=== PATIENT | female | born 1995 | race Hispanic/Latino ===

== ENCOUNTER 2018-12-29 11:21 | Inpatient (IN) | payer MEDICAID ==
[2018-12-29] MEDS ORDERED: BUTORPHANOL 2 MG/1 ML INJ IV PRN (13:37)
[2018-12-29] MEDS ORDERED: LIDOCAINE (2%) 20 MG/1 ML VIAL 20 ML MDV INFILTRATI ONE (13:37)
[2018-12-29] MEDS ORDERED: MINERAL OIL 30 ML ORAL LIQD PO PRN (13:37)
[2018-12-29] MEDS ORDERED: ePHEDrine SULFATE 50 MG/1 ML INJ IV PRN (13:37)
[2018-12-29] MEDS ORDERED: TERBUTALINE 1 MG/1 ML INJ IVP PRN (13:37)
[2018-12-29] MEDS ORDERED: fentaNYL 100 MCG/2 ML INJ IV PRN (13:37)
[2018-12-29] MEDS ORDERED: TERBUTALINE 1 MG/1 ML INJ SUB-Q PRN (13:37)
[2018-12-29 13:54] LABS: Hematocrit 34.8 % (30.3-42.9); Hemoglobin 11.8 gm/dl (10.1-14.3); Mean Corpuscular HGB Conc 34 % (30-34); Mean Corpuscular Volume 87 fl (79-97); Platelet Count 304 K/mm3 (140-440); Red Cell Distribution Width 12.7 % (13.2-15.2)
[2018-12-29] MEDS ORDERED: OXYTOCIN 20 UNIT/1000ML DRIP 20 UNITS/1,000 ML BAG IV SCH (14:00)
[2018-12-29] MEDS ORDERED: OXYTOCIN DRIP 30 UNITS/500 ML BAG IV SCH (14:00)
[2018-12-29] MEDS ORDERED: miSOPROStol 100 MCG TAB VG ONE (15:00)
[2018-12-29] MEDS: miSOPROStol 25 MCG TAB VG SCH ×2 (16:02→22:47)
[2018-12-29] MEDS: LACTATED RINGERS 1,000 ML IV SCH (18:29)
[2018-12-29] MEDS: OXYTOCIN DRIP 30 UNITS/500 ML BAG IV SCH (19:23)
[2018-12-30] MEDS: LACTATED RINGERS 1,000 ML IV SCH ×2 (02:17→14:39)
--- NOTE | 2018-12-30 08:52 | History and Physical Report ---
History of Present Illness Date of examination: 12/30/18 Chief complaint: My fluid is low History of present illness: Pt is a 23 year old who presents at 39.5 weeks for induction for oligo hydramnios found today on ultrasound at [facility]. Pt has had an uncomplicated course. She is GBS negative. Medications and Allergies Allergies Allergy/AdvReac Type Severity Reaction Status Date / Time No Known Allergies Allergy Unverified 12/29/18 11:42 Home Medications Medication Instructions Recorded Confirmed Last Taken Type [facility] Gummies 1 tab PO DAILY MDD 1 12/29/18 12/29/18 12/29/18 History 0800 Active Meds: Active Medications Butorphanol Tartrate (Stadol) 2 mg IV Q2H PRN PRN Reason: Pain , Severe (7-10) Ephedrine Sulfate (Ephedrine Sulfate) 10 mg IV Q2M PRN PRN Reason: Hypotension Fentanyl (Sublimaze) 100 mcg IV Q2H PRN PRN Reason: Labor Pain Oxytocin/Sodium Chloride (Pitocin/Ns 20 Unit/1000ml Drip) 20 units in 1,000 mls @ 125 mls/hr IV DIRECT ADELINE Oxytocin/Sodium Chloride (Pitocin/Ns 30 Unit/500ml) 30 units in 500 mls @ 1 mls/hr IV TITR ADELINE; Protocol Last Titration: 12/30/18 07:45 Dose: 10 milliunits/min, 10 mls/hr Documented by: Oxytocin/Sodium Chloride (Pitocin/Ns 30 Unit/500ml) 30 units in 500 mls @ 4 mls/hr IV TITR ADELINE; Protocol Lactated Ringer's (Lactated Ringers) 1,000 mls @ 125 mls/hr IV DIRECT ADELINE Last Admin: 12/30/18 02:17 Dose: 125 mls/hr Documented by: Mineral Oil (Mineral Oil) 30 ml PO QHS PRN PRN Reason: Constipation Misoprostol (Cytotec) 25 mcg VG Q4H ADELINE Last Admin: 12/29/18 22:47 Dose: 25 mcg Documented by: Terbutaline Sulfate (Brethine) 0.25 mg SUB-Q ONCE PRN PRN Reason: Hyperstimulation/Hypertonicity Terbutaline Sulfate (Brethine) 0.25 mg IVP ONCE PRN PRN Reason: Hyperstimulation/Hypertonicity Review of Systems All systems: negative Genitourinary: contractions - Vital Signs Vital signs: Vital Signs Pulse Pulse Ox 114 H 97 12/29/18 11:47 12/29/18 11:47 Temp Pulse Resp BP Pulse Ox 98.0 F 85 16 117/80 80 L 12/30/18 07:36 12/30/18 07:40 12/30/18 07:36 12/30/18 07:40 12/29/18 12:06 - Physical Exam Breasts: Cardiovascular: Regular rate, Normal S1, Normal S2 Lungs: Positive: Clear to auscultation, Normal air movement Abdomen: Positive: normal appearance, soft, normal bowel sounds. Negative: distention, tenderness Genitourinary (Female): Positive: normal external genitalia, normal perenium Vulva: both: normal Vagina: Positive: normal moisture. Negative: discharge Cervix: Negative: lesion, discharge Uterus: Positive: normal size, normal contour Adnexa: both: normal Anus/Rectum: Positive: normal perianal skin, heme negative. Negative: rectal mass, hemorrhoids Extremities: Deep Tendon Reflex Grade: Normal +2 - Obstetrical FHR: auscultation normal Cervical Dilatation: 0.5 Cervical Effacement Percentage: 50 station: -3 Uterine Contraction Pattern: Absent Uterine Tone Measurement Phase: Resting Results Result Diagrams: 12/29/18 12:08 Abnormal lab results 12/29/18 Range/Units 12:08 WBC 12.0 H (4.5-11.0) K/mm3 RDW 12.7 L (13.2-15.2) % All other labs normal. Assessment and Plan IUP at 39.5 here for induction of labor secondary to oligohydramnios. Will admit for cytotec cervical ripening and then pitocin. Pt may have epidural when ready. Anticipate .
[2018-12-30] MEDS ORDERED: ePHEDrine SULFATE 50 MG/1 ML INJ IV PRN (10:50)
[2018-12-30] MEDS ORDERED: NALOXONE 2 MG/2 ML INJ IV PRN (10:50)
[2018-12-30] MEDS ORDERED: fentaNYL-BUPIV 2 MCG/ML-0.125% 200 MCG/100 ML BAG EPIDURAL SCH (11:00)
[2018-12-30] MEDS: OXYTOCIN DRIP 30 UNITS/500 ML BAG IV SCH (12:10)
--- NOTE | 2018-12-30 14:22 | Anesthesia Consultation ---
Anesthesia Consult and Med Hx Date of service: 12/30/18 - Airway Anesthetic Teeth Evaluation: Good ROM Head & Neck: Adequate Mental/Hyoid Distance: Adequate Mallampati Class: Class II Intubation Access Assessment: Probably Good - Pulmonary Exam CTA: Yes - Cardiac Exam Cardiac Exam: RRR - Pre-Operative Health Status ASA Pre-Surgery Classification: ASA2 Proposed Anesthetic Plan: Epidural, Spinal - Pulmonary Hx Smoking: No Hx Respiratory Symptoms: No - Cardiovascular System Hx Hypertension: No - Central Nervous System Hx Neuromuscular Disorder: No CVA: No Hx Back Pain: No - Endocrine Hx Renal Disease: No Hx Liver Disease: No Hx Insulin Dependent Diabetes: No Hx Non-Insulin Dependent Diabetes: No Hx Thyroid Disease: No - Hematic Hx Anemia: Yes - Other Systems Hx Obesity: Yes
[2018-12-30] MEDS ORDERED: LIDOCAINE MPF (2%) 20 MG/1 ML VIAL 5 ML ONE (14:33)
[2018-12-30] MEDS ORDERED: OXYTOCIN 10 UNIT/1 ML INJ ONE (19:02)
--- NOTE | 2018-12-30 19:22 | Procedure Note ---
OB Delivery Note - Delivery Date of Delivery: 12/30/18 Surgeon: RUPINDER ANDREW Estimated blood loss: 200cc - Vaginal Delivery presentation: vertex Delivery position: OA Intrapartum events: none Delivery induction: misoprostol Delivery augmentation: rupture of membranes, pitocin Delivery monitor: external FHT, external uterine Route of delivery: Delivery placenta: spontaneous Delivery cord: 3 umbilical vessels Episiotomy: none Delivery laceration: 2nd degree, vaginal side wall Delivery repair: vicryl Anesthesia: epidural Delivery comments: Viable male delivered over intact perineum with no nuchal cord, Weight 8 pounds 9 ounces. Apgars 9,9. Placenta delivered spontaneously and intact with 3vc. 2nd degree laceration repaired with 2.0 vicryl. Excellent hemostasis. Pt tolerated procedure well. - A at 1 minute: 8 at 5 minutes: 9 Infant Gender: Male (Weight 8 pounds 9 ounces.)
[2018-12-30] MEDS ORDERED: MAGNESIUM HYDROXIDE (MOM) ORAL LIQD UDC PO PRN (21:13)
[2018-12-30] MEDS ORDERED: WITCH HAZEL/ GLYCERIN PAD TP PRN (21:13)
[2018-12-30] MEDS ORDERED: LANOLIN/ZINC/DIMETHICONE (LANSINOH) 7 GM TP PRN (21:13)
[2018-12-30] MEDS ORDERED: PROMETHAZINE 25 MG RECT SUPP PR PRN (21:13)
[2018-12-30] MEDS ORDERED: ACETAMINOPHEN 325 MG TAB PO PRN (21:13)
[2018-12-30] MEDS ORDERED: PROMETHAZINE 25 MG TAB PO PRN (21:13)
[2018-12-30] MEDS ORDERED: diphenhydrAMINE 25 MG CAP PO PRN (21:13)
[2018-12-30] MEDS ORDERED: HYDROcodone/ACETAMINOPHEN 5-325 MG TAB PO PRN (21:13)
[2018-12-30] MEDS ORDERED: ONDANSETRON 4 MG/2 ML INJ IV PRN (21:13)
[2018-12-31 06:09] LABS: Amphetamine Screen,Urine PRESUMPTIVE NEGATIVE; Benzodiazepines Screen,Urine PRESUMPTIVE NEGATIVE; Cannabinoid Screen,Urine PRESUMPTIVE NEGATIVE; Cocaine Screen,Urine PRESUMPTIVE NEGATIVE; Methadone Screen,Urine PRESUMPTIVE NEGATIVE; Opiate Screen,Urine PRESUMPTIVE NEGATIVE
[2018-12-31 08:11] LABS: Hematocrit 31.7 % (30.3-42.9); Hemoglobin 10.9 gm/dl (10.1-14.3)
[2018-12-31] MEDS: PRENATAL VIT27-FE FUMARATE-FOLIC ACID VIT TAB PO SCH (10:23)
[2018-12-31] MEDS: DOCUSATE SODIUM 100 MG CAP PO SCH ×3 (10:23→23:18)
--- NOTE | 2018-12-31 12:13 | Progress Note ---
Assessment and Plan Pt is PPD1 s/p Vital signs stable Mild anemia- Ferrous sulfate qDay Anticipate discharge to home tomorrow Subjective - Subjective Date of service: 12/31/18 Principal diagnosis: s/p Interval history: PPD1 s/p of viable infant Patient reports: appetite normal, voiding normally, pain well controlled, ambulating normally : doing well, nursing well, bottle feeding (both) Objective - Vital Signs Latest vital signs: Vital Signs Temp Pulse Resp BP BP Pulse Ox 12/31/18 09:21 97.8 F 95 H 20 106/78 100 12/31/18 05:48 98.1 F 107 H 20 105/67 95 12/30/18 21:22 99.4 F 93 H 20 136/73 96 12/30/18 20:42 101 H 94 12/30/18 20:40 93 H 128/71 12/30/18 20:39 109 H 94 12/30/18 20:37 107 H 94 12/30/18 20:34 92 H 94 12/30/18 20:32 102 H 95 12/30/18 20:27 88 94 12/30/18 20:25 98 H 114/76 12/30/18 20:22 105 H 94 12/30/18 20:17 106 H 96 12/30/18 20:16 100 H 94 12/30/18 20:12 100 H 94 12/30/18 20:10 105 H 116/84 12/30/18 20:07 100 H 94 12/30/18 20:02 105 H 95 12/30/18 19:57 103 H 95 12/30/18 19:56 103 H 94 12/30/18 19:55 98 H 116/64 12/30/18 19:52 104 H 95 12/30/18 19:50 102 H 94 12/30/18 19:47 106 H 95 12/30/18 19:42 111 H 95 12/30/18 19:40 102 H 126/78 12/30/18 19:37 109 H 95 12/30/18 19:32 99 H 97 12/30/18 19:27 106 H 96 12/30/18 19:15 99.2 F 98 H 18 126/78 95 12/30/18 18:25 109 H 125/65 12/30/18 18:10 150 H 146/78 12/30/18 17:56 117 H 145/96 12/30/18 17:50 100.8 F H 12/30/18 17:40 102 H 112/58 12/30/18 17:25 93 H 124/58 12/30/18 17:12 87 91 12/30/18 17:10 85 132/76 90 12/30/18 17:08 99 H 96 12/30/18 17:03 83 91 12/30/18 16:58 81 96 12/30/18 16:55 69 127/85 94 12/30/18 16:53 88 96 12/30/18 16:48 96 H 97 12/30/18 16:43 89 93 12/30/18 16:40 86 139/85 12/30/18 16:38 85 79 L 12/30/18 16:33 78 95 12/30/18 16:32 82 94 12/30/18 16:28 80 97 12/30/18 16:26 89 145/86 93 12/30/18 16:23 95 H 94 12/30/18 16:21 91 H 94 12/30/18 16:18 84 97 12/30/18 16:14 84 93 12/30/18 16:13 84 97 12/30/18 16:11 86 115/68 12/30/18 16:09 82 93 12/30/18 16:08 88 97 12/30/18 16:03 93 H 98 12/30/18 15:58 80 96 12/30/18 15:55 90 124/74 12/30/18 15:53 99 H 98 12/30/18 15:48 92 H 98 12/30/18 15:43 70 98 12/30/18 15:40 77 136/70 12/30/18 15:38 79 96 12/30/18 15:33 86 93 12/30/18 15:31 85 93 12/30/18 15:27 78 97 12/30/18 15:26 80 113/56 12/30/18 15:23 80 94 12/30/18 15:18 84 97 12/30/18 15:14 89 92 12/30/18 15:13 78 98 12/30/18 15:10 96 H 125/75 12/30/18 15:08 96 H 97 12/30/18 15:03 98 H 97 12/30/18 14:58 100 H 98 12/30/18 14:55 105 H 126/72 12/30/18 14:53 105 H 99 12/30/18 14:48 101 H 99 12/30/18 14:43 101 H 98 12/30/18 14:40 81 125/76 12/30/18 14:39 86 93 12/30/18 14:38 78 94 12/30/18 14:33 73 91 12/30/18 14:30 98.8 F 12/30/18 14:28 77 94 12/30/18 14:27 76 94 12/30/18 14:25 79 118/80 12/30/18 14:22 68 99 12/30/18 14:18 81 98 12/30/18 14:13 86 97 12/30/18 14:10 73 120/79 88 12/30/18 14:08 70 98 12/30/18 14:03 74 99 12/30/18 13:58 84 99 12/30/18 13:56 79 119/75 12/30/18 13:53 84 95 12/30/18 13:49 82 80 L 12/30/18 13:48 72 96 12/30/18 13:43 78 97 12/30/18 13:41 80 132/77 80 L 12/30/18 13:38 74 100 12/30/18 13:33 83 99 12/30/18 13:27 68 100 12/30/18 13:25 77 124/81 12/30/18 13:22 66 95 12/30/18 13:19 77 89 12/30/18 13:17 72 86 12/30/18 13:13 74 100 12/30/18 13:11 90 83 L 12/30/18 13:10 71 121/69 12/30/18 13:08 68 100 12/30/18 13:05 74 86 12/30/18 13:02 87 98 12/30/18 12:58 83 93 12/30/18 12:56 79 119/70 12/30/18 12:53 74 97 12/30/18 12:52 84 92 12/30/18 12:48 72 100 12/30/18 12:43 77 98 12/30/18 12:41 75 111/70 12/30/18 12:38 86 98 12/30/18 12:33 81 99 12/30/18 12:28 82 99 12/30/18 12:25 82 111/66 12/30/18 12:22 74 99 12/30/18 12:17 89 98 12/30/18 12:13 79 98 Intake and Output 12/30/18 12/31/18 12/31/18 23:59 07:59 15:59 Intake Total 240 240 Output Total 400 400 Balance -160 -160 Intake: Oral 240 240 Output: Urine 400 400 Void 400 400 Other: Total, Intake Amount 240 240 Total, Output Amount 400 400 Estimated Blood Loss 200 - Exam Lungs: Present: Normal air movement Abdomen: Present: normal appearance, soft Uterus: Present: normal, firm, fundal height at umbilicus Extremities: Present: normal
--- NOTE | 2018-12-31 12:16 | Discharge Summary ---
Providers - Providers Date of Admission: 12/30/18 14:20 Date of discharge: 01/01/19 Attending physician: RUPINDER ANDREW Primary care physician: RUPINDER ANDREW Hospitalization Reason for admission: induction of labor (for oligohydramnios) Delivery: Episiotomy: none Laceration: vaginal side wall, 2nd degree Other procedures: none complications: none Discharge diagnosis: IUP at term delivered Hospital course: Pt presented at 39.5 weeks EGA for IOL for oligohydramnios. Progressed to . Breast and bottle feeding. Mild anemia. Met discharge criteria on PPD1. Condition at discharge: Good Disposition: DC-01 TO HOME OR SELFCARE Plan - Discharge Medications Prescriptions: Ibuprofen [Motrin] 800 mg PO Q8HR PRN #40 tablet PRN Reason: Pain, Moderate (4-6) HYDROcodone/APAP 5-325 [[place] 5/325] 1 each PO Q6HR PRN #15 tablet PRN Reason: Pain - Provider Discharge Summary Activity: routine, no sex for 6 weeks, no heavy lifting 4 weeks, no strenuous exercise Diet: routine Instructions: routine Additional instructions: [] Smoking cessation referral if applicable(refer to patient education folder for contact #) [] Refer to [facility] Booklet Call your doctor immediately for: * Fever > 100.5 * Heavy vaginal bleeding ( >1 pad per hour) * Severe persistent headache * Shortness of breath * Reddened, hot, painful area to leg or breast * Drainage or odor from incision. * Keep incision clean and dry at all times and follow doctor's instructions regarding bathing/showering - Follow up plan Follow up: RUPINDER ANDREW MD [Primary Care Provider] - 6 Weeks (Please call office to schedule appointment.)
[2018-12-31] MEDS: IBUPROFEN 600 MG TAB PO SCH ×2 (14:35→23:16)
[2019-01-01] MEDS: IBUPROFEN 600 MG TAB PO SCH ×2 (05:09→12:35)
--- NOTE | 2019-01-01 11:09 | Progress Note ---
Assessment and Plan Pt is PPD2 s/p Vital signs stable Mild anemia- Ferrous sulfate qDay Discharge to home today Subjective - Subjective Date of service: 01/01/19 Principal diagnosis: s/p Interval history: PPD2 s/p of viable Patient reports: appetite normal, voiding normally, pain well controlled, ambulating normally [place]: doing well, bottle feeding (Pt desires to breast feed) Objective - Vital Signs Latest vital signs: Vital Signs Temp Pulse Resp BP Pulse Ox 01/01/19 00:01 98.7 F 92 H 20 99/48 96 12/31/18 16:23 97.9 F 90 18 118/74 97 12/31/18 12:27 97.3 F L 97 H 18 114/72 97 Intake and Output 12/31/18 01/01/19 01/01/19 23:59 07:59 15:59 Intake Total 240 720 Balance 240 720 Intake: Oral 240 720 Other: Total, Intake Amount 240 240 # Voids Void 1 1 - Exam Lungs: Present: Normal air movement Abdomen: Present: normal appearance, soft Uterus: Present: normal, firm, fundal height at umbilicus Extremities: Present: normal
[2019-01-01 11:46] VITALS: BP 104/60
[2019-01-01] MEDS: PRENATAL VIT27-FE FUMARATE-FOLIC ACID VIT TAB PO SCH (12:43)
[2019-01-01] MEDS: DOCUSATE SODIUM 100 MG CAP PO SCH (13:05)
[2019-01-11 12:09] LABS: HIV-1 Antibody Differentiation SEE SCANNED RESULT; HIV-2 Antibody Differentiation SEE SCANNED RESULT
== END 2019-01-01 15:15 | disposition home or self-care (01) | DRG 775 ==
LOC: LDOR 11:21 → LD 11:22 → LDOR 12-30 14:19 → LD 12-30 14:20 → OB 12-30 20:45
PROVIDERS: ADMIT Obstetrics & Gynecology; ATTEND Obstetrics & Gynecology
PROC: 10E0XZZ Delivery of Products of Conception, External Approach (ICD-10-PCS; principal; 2018-12-30)
PROC: 0KQM0ZZ Repair Perineum Muscle, Open Approach (ICD-10-PCS; 2018-12-30)
PROC: 3E0R3BZ Introduction of Anesthetic Agent into Spinal Canal, Percutaneous Approach (ICD-10-PCS; 2018-12-30)
PROC: 00HU33Z Insertion of Infusion Device into Spinal Canal, Percutaneous Approach (ICD-10-PCS; 2018-12-30)
PROC: 3E0P7VZ Introduction of Hormone into Female Reproductive, Via Natural or Artificial Opening (ICD-10-PCS; 2018-12-30)
DX: O41.03X0 Oligohydramnios, third trimester, not applicable or unspecified (principal); O99.214 Obesity complicating childbirth; O99.02 Anemia complicating childbirth; D64.9 Anemia, unspecified; O70.1 Second degree perineal laceration during delivery; Z37.0 Single live birth; Z3A.39 39 weeks gestation of pregnancy
CPT/HCPCS: 36415; 80307; 85014; 85018; 85027; 86592; 86689; 86850; 86900; 86901; G0378; J2590; J7120